=== PATIENT | male | born 1995 | race Caucasian/White ===

== ENCOUNTER 2019-04-04 09:42 | Emergency (ER) | payer SELFPAY ==
[2019-04-04] MEDS ORDERED: Ondansetron 4 MG Tab.DIS PO ONE (10:23)
--- NOTE | 2019-04-04 10:24 | EDM.PDOC ---
ED HPI GENERAL MEDICAL PROBLEM - General Chief Complaint: ENT Problem Stated Complaint: RASH ON MOUTH Time Seen by Provider: 04/04/19 10:04 Source of Information: Reports: Patient History Limitations: Reports: No Limitations - History of Present Illness INITIAL COMMENTS - FREE TEXT/NARRATIVE: HISTORY AND PHYSICAL: History of present illness: Patient is a 23-year-old male who presents to the emergency room with complaints of oral sores, fever blisters, nausea, vomiting and diarrhea. Patient reports that approximately 3 days ago he had noticed cold sores/fever blisters to the corners of bilateral mouth which moved into some anger sores in his gumline the following day. Over the past 24 hours he has had nausea and vomiting and a few episodes of diarrhea. He denies any recent travel, insect/ tick bites, antibiotic use or new exposures to foods. No one else in the home is ill. Patient denies any fever, chills, headache, change in vision, syncope or near syncope. Denies any chest pain, back pain, shortness of breath or cough. Has not noted any blood in urine or stool. Patient has been eating and drinking appropriately. Review of systems: As per history of present illness and below otherwise all systems reviewed and negative. Past medical history: As per history of present illness and as reviewed below otherwise noncontributory. Surgical history: As per history of present illness and as reviewed below otherwise noncontributory. Social history: See social history for further information Family history: As per history of present illness and as reviewed below otherwise noncontributory. Physical exam: General: Well-developed and well-nourished 23-year-old male. Alert and oriented. Nontoxic appearing and in no acute distress. HEENT: Atraumatic, normocephalic, pupils equal and reactive bilaterally, negative for conjunctival pallor or scleral icterus, mucous membranes moist, cold sore noted to bilateral lower lip in the corners. Canker sores noted to the lower gumline. TMs normal bilaterally, throat erythematous with exudate, no fullness or pillar shifting, neck supple, nontender, trachea midline. No drooling or trismus noted. No meningeal signs. No hot potato voice noted. Lungs: Clear to auscultation, breath sounds equal bilaterally, chest nontender. Heart: S1S2, regular rate and rhythm without overt murmur Abdomen: Soft, nondistended, nontender. Negative for masses or hepatosplenomegaly. Negative for costovertebral tenderness. Pelvis: Stable nontender. Skin: Intact, warm, dry. No lesions or rashes noted. Extremities: Atraumatic, moves all extremities per self without difficulty or deficits, negative for cords or calf pain. Neurovascular unremarkable. Neuro: Awake, alert, oriented. Cranial nerves II through XII unremarkable. Cerebellum unremarkable. Motor and sensory unremarkable throughout. Exam nonfocal. Notes: Lab work is unremarkable. Vital signs remain stable. Patient felt relief with the Zofran. Supportive care measures were reviewed and discussed. Voices understanding and is agreeable to plan of care. Denies any further questions or concerns at this time. Diagnostics: CBC, CMP, [place] Spot, Strep Screening Therapeutics: Zofran ODT Prescription: Miracle Mouth wash Phenergan with codeine Zofran Impression: Viral gastroenteritis Canker sores Plan: 1. Please use Tylenol and/or Ibuprofen as needed for pain and fever management. Use the miracle mouthwash to help with the oral sores, you may use 10 mL's every 4 hours gargle/swish and spit as needed. Phenergan With Codeine is a narcotic so do not take this while driving or needing to be functioning outside of the house. Zofran for nausea management as needed. 2. Get plenty of Rest. Encourage fluids to prevent dehydration. Avoid any foods that can irritate the mouth such as citrus or spicy foods. Advance her diet as tolerated. 3. Please follow up with your primary care provider. Return to the ED as needed as discussed. Definitive disposition and diagnosis as appropriate pending reevaluation and review of above. Generalized Pain Score (Numeric/FACES): 5 - Related Data Allergies Allergy/AdvReac Type Severity Reaction Status Date / Time sulfamethoxazole Allergy Hives Verified 04/04/19 10:09 [From Bactrim] trimethoprim [From Bactrim] Allergy Hives Verified 04/04/19 10:09 Home Meds: Home Meds . [No Known Home Meds] 04/04/19 [History] Past Medical History - Past Health History Medical/Surgical History: Denies Medical/Surgical History - Infectious Disease History Infectious Disease History: Reports: None Social & Family History - Family History Family Medical History: Noncontributory - Tobacco Use Smoking Status *Q: Never Smoker Second Hand Smoke Exposure: No - Caffeine Use Caffeine Use: Reports: Energy Drinks - Recreational Drug Use Recreational Drug Use: No ED ROS ENT - Review of Systems Review Of Systems: ROS reveals no pertinent complaints other than HPI. ED EXAM, ENT - Physical Exam Exam: See Below (See dictation) Course - Vital Signs Last Recorded V/S: Last Vital Signs Temp 97 F 04/04/19 10:09 Pulse 97 04/04/19 10:09 Resp 16 04/04/19 10:09 BP 127/74 04/04/19 10:09 Pulse Ox 100 04/04/19 10:09 - Orders/Labs/Meds Orders: Active Orders 24 hr Category Date Time Status CULTURE STREP A CONFIRMATION [RM] Stat Lab 04/04/19 10:36 Results STREP SCRN A RAPID W CULT CONF [RM] Stat Lab 04/04/19 10:36 Results Labs: Laboratory Tests 04/04/19 04/04/19 04/04/19 Range/Units 10:39 10:39 10:39 WBC 7.71 (4.0-11.0) K/uL RBC 5.31 (4.50-5.90) M/uL Hgb 15.4 (13.0-17.0) g/dL Hct 46.7 (38.0-50.0) % MCV 87.9 (80.0-98.0) fL MCH 29.0 (27.0-32.0) pg MCHC 33.0 (31.0-37.0) g/dL RDW Std Deviation 40.8 (28.0-62.0) fl RDW Coeff of Jordan 13 (11.0-15.0) % Plt Count 262 (150-400) K/uL MPV 10.20 (7.40-12.00) fL Neut % (Auto) 51.8 (48.0-80.0) % Lymph % (Auto) 32.4 (16.0-40.0) % [place] % (Auto) 10.0 (0.0-15.0) % Eos % (Auto) 4.8 (0.0-7.0) % Baso % (Auto) 1.0 (0.0-1.5) % Neut # (Auto) 4.0 (1.4-5.7) K/uL Lymph # (Auto) 2.5 H (0.6-2.4) K/uL [place] # (Auto) 0.8 (0.0-0.8) K/uL Eos # (Auto) 0.4 (0.0-0.7) K/uL Baso # (Auto) 0.1 (0.0-0.1) K/uL Nucleated RBC % 0.0 /100WBC Nucleated RBCs # 0 K/uL Sodium 137 (136-148) mmol/L Potassium 4.2 (3.5-5.1) mmol/L Chloride 99 (98-107) mmol/L Carbon Dioxide 28.8 (21.0-32.0) mmol/L BUN 15 (7.0-18.0) mg/dL Creatinine 1.1 (0.8-1.3) mg/dL Est Cr Clr Drug Dosing 91.63 mL/min Estimated GFR (MDRD) > 60.0 ml/min Glucose 95 (74-106) mg/dL Calcium 8.8 (8.5-10.1) mg/dL Total Bilirubin 0.4 (0.2-1.0) mg/dL AST 17 (15-37) IU/L ALT 30 (14-63) IU/L Alkaline Phosphatase 78 (46-116) U/L Total Protein 8.0 (6.4-8.2) g/dL Albumin 3.7 (3.4-5.0) g/dL Globulin 4.3 H (2.6-4.0) g/dL Albumin/Globulin Ratio 0.9 (0.9-1.6) Monoscreen NEGATIVE (NEG) Meds: Medications Discontinued Medications Generic Name Dose Route Start Last Admin Trade Name Freq PRN Reason Stop Dose Admin Ondansetron HCl 4 mg 04/04/19 10:23 04/04/19 10:36 Zofran Odt PO 04/04/19 10:24 4 mg ONETIME ONE Administration Departure - Departure Time of Disposition: 11:24 Disposition: Home, Self-Care 01 Clinical Impression: Canker sores oral, Viral gastroenteritis - Discharge Information Instructions: Viral Gastroenteritis, Adult, [id number], Canker Sores Referrals: PCP,None [Primary Care Provider] - Forms: ED Department Discharge Additional Instructions: The following information is given to patients seen in the emergency department who are being discharged to home. This information is to outline your options for follow-up care. We provide all patients seen in our emergency department with a follow-up referral. The need for follow-up, as well as the timing and circumstances, are variable depending upon the specifics of your emergency department visit. If you don't have a primary care physician on staff, we will provide you with a referral. We always advise you to contact your personal physician following an emergency department visit to inform them of the circumstance of the visit and for follow-up with them and/or the need for any referrals to a consulting specialist. The emergency department will also refer you to a specialist when appropriate. This referral assures that you have the opportunity for follow-up care with a specialist. All of these measure are taken in an effort to provide you with optimal care, which includes your follow-up. Under all circumstances we always encourage you to contact your private physician who remains a resource for coordinating your care. When calling for follow-up care, please make the office aware that this follow-up is from your recent emergency room visit. If for any reason you are refused follow-up, please contact the [facility] Emergency Department at and asked to speak to the emergency department charge nurse. [facility] [address] [place] [id number] [address] 1. Please use Tylenol and/or Ibuprofen as needed for pain and fever management. Use the miracle mouthwash to help with the oral sores, you may use 10 mL's every 4 hours gargle/swish and spit as needed. Phenergan With Codeine is a narcotic so do not take this while driving or needing to be functioning outside of the house. Zofran for nausea management as needed. 2. Get plenty of Rest. Encourage fluids to prevent dehydration. Avoid any foods that can irritate the mouth such as citrus or spicy foods. Advance her diet as tolerated. 3. Please follow up with your primary care provider. Return to the ED as needed as discussed. - My Orders Last 24 Hours: My Active Orders 04/04/19 10:36 CULTURE STREP A CONFIRMATION [RM] Stat STREP SCRN A RAPID W CULT CONF [RM] Stat - Assessment/Plan Last 24 Hours: My Active Orders 04/04/19 10:36 CULTURE STREP A CONFIRMATION [RM] Stat STREP SCRN A RAPID W CULT CONF [] Stat
[2019-04-04 11:21] LABS: CHLORIDE,CL 99 mmol/L (98-107); SODIUM,NA 137 mmol/L (136-148)
== END 2019-04-04 11:35 | disposition home or self-care (01) ==
LOC: MW.ED 09:42
DX: A08.4 Viral intestinal infection, unspecified (principal); K12.0 Recurrent oral aphthae; Z88.2 Allergy status to sulfonamides; Z88.8 Allergy status to other drugs, medicaments and biological substances; Z79.899 Other long term (current) drug therapy
CPT/HCPCS: 36415; 80053; 85025; 86308; 87081; 87880; 99284; A9270

== ENCOUNTER 2021-06-03 16:27 | Emergency (ER) | payer SELFPAY ==
[2021-06-03] MEDS ORDERED: Ibuprofen 600 MG Tab PO ONE (17:19)
[2021-06-03] MEDS ORDERED: Cephalexin 500 MG Cap PO ONE (17:20)
--- NOTE | 2021-06-03 17:41 | EDM.PDOC ---
ED HPI GENERAL MEDICAL PROBLEM - General Chief Complaint: Skin Complaint Stated Complaint: BOIL Time Seen by Provider: 06/03/21 16:36 - History of Present Illness INITIAL COMMENTS - FREE TEXT/NARRATIVE: HISTORY AND PHYSICAL: History of present illness: This is a 25-year-old gentleman who presents ER today secondary to an abscess to his perineal region. Patient has any history of hypertension, diabetes, liver, lung, kidney problems. Patient reports that he noticed pain and swelling in the area approximately 2 to 3 days ago and is been applying heat to the area. Review of systems: As per history of present illness and below otherwise all systems reviewed and negative. Past medical history: As per history of present illness and as reviewed below otherwise noncontributory. Surgical history: As per history of present illness and as reviewed below otherwise noncontributory. Social history: No reported history of drug abuse. Family history: As per history of present illness and as reviewed below otherwise nonc ontributory. Physical exam: HEENT: Atraumatic, normocephalic, pupils reactive, negative for conjunctival pallor or scleral icterus, mucous membranes moist, throat clear, neck supple, nontender, trachea midline. Lungs: Clear to auscultation, breath sounds equal bilaterally, chest nontender. Heart: S1S2, regular, negative for clicks, rubs, or JVD. Abdomen: Soft, nondistended, nontender. Negative for masses or hepatosplenomegaly. Negative for costovertebral tenderness. Pelvis: Stable nontender. Genitourinary: Deferred. Rectal: Deferred. Extremities: Atraumatic, negative for cords or calf pain. Neurovascular unremarkable. Neuro: Awake, alert, oriented. Cranial nerves II through XII unremarkable. Cerebellum unremarkable. Motor and sensory unremarkable throughout. Exam nonfocal. Patient's ER physical exam is significant for a 3 x 3 cm induration that is already draining purulent material from his right perineal area over his proximal buttock. Abscess not does not encroach into the perianal or rectal region. Patient as mentioned is already self draining with a moderate amount of purulent material identified on the sheets in the bed. Diagnostics: [] Therapeutics: I&D of abscess performed in ED Assessment and plan: 25-year-old gentleman who presents to the ER today secondary to an abscess to his right perineal region. There is no evidence of Srinath's gangrene. Patient has any history of diabetes. Incision and drainage was performed in ER with a moderate amount of purulent material expressed. Patient was started on Keflex and ibuprofen for pain. Patient will need a wound check by his primary care physician in 2 to 3 days. Patient may return to the ED if he is unable to see his physician in that time period. Reassessment at the time of disposition demonstrates that the patient is in no acute distress. The patient has remained stable throughout the entire ED visit and is without objective evidence for acute process requiring urgent intervention or hospitalization. The patient is stable for discharge, counseling is provided as documented above, discussed symptomatic treatment and specific conditions for return. I have spoken with the patient/caregiver and discussed todays findings, in addition to providing specific details for the plan of care. Questions are answered and there is agreement with the plan. Definitive disposition and diagnosis as appropriate pending reevaluation and review of above. Left Buttock Pain Score (Numeric/FACES): 4 - Related Data Allergies Allergy/AdvReac Type Severity Reaction Status Date / Time sulfamethoxazole Allergy Hives Verified 06/03/21 16:39 [From Bactrim] trimethoprim [From Bactrim] Allergy Hives Verified 06/03/21 16:39 Home Meds: Home Meds Ibuprofen 600 mg PO Q6HR PRN #30 tablet 06/03/21 [Rx] cephALEXin [Keflex] 500 mg PO Q8H #30 cap 06/03/21 [Rx] Past Medical History - Past Health History Medical/Surgical History: Denies Medical/Surgical History - Infectious Disease History Infectious Disease History: Reports: None Social & Family History - Family History Family Medical History: No Pertinent Family History - Tobacco Use Tobacco Use Status *Q: Never Tobacco User - Caffeine Use Caffeine Use: Reports: None - Recreational Drug Use Recreational Drug Use: No ED ROS GENERAL - Review of Systems Review Of Systems: See Below ED EXAM, SKIN/RASH Exam: See Below ED SKIN PROCEDURES - I&D Site: Right perineal region Skin Prep: Providone-Iodine (Betadine) Local Anesthesia: Lidocaine: 1% Plain Local Anesthetic Volume: 2cc Area Incised With: 11 Blade Drainage: Purulent, Moderate Amount Probed to Break Up Loculations: Yes Packed With: None Sterile Dressinx4(s) Complications: No Course - Vital Signs Last Recorded V/S: Last Vital Signs Temp 98 F 06/03/21 16:39 Pulse 100 06/03/21 16:39 Resp 16 06/03/21 16:39 BP 150/99 H 06/03/21 16:39 Pulse Ox 97 06/03/21 16:39 - Orders/Labs/Meds Meds: Medications Discontinued Medications Generic Name Dose Route Start Last Admin Trade Name Kayla PRN Reason Stop Dose Admin Cephalexin 500 mg 06/03/21 17:20 Cephalexin 500 Mg Cap PO 06/03/21 17:21 ONETIME ONE Ibuprofen 600 mg 06/03/21 17:19 Ibuprofen 600 Mg Tab PO 06/03/21 17:20 ONETIME ONE Lidocaine HCl 5 ml 06/03/21 16:57 06/03/21 17:01 Lidocaine 1% 5 Ml Sdv INJECT 06/03/21 16:58 5 ml ONETIME ONE Administration Departure - Departure Time of Disposition: 17:41 Disposition: Home, Self-Care 01 Condition: Good Clinical Impression: Abscess - Discharge Information Instructions: Skin Abscess Referrals: PCP,None [Primary Care Provider] - Additional Instructions: You were seen and evaluated in the ER today secondary to an abscess to your groin. You will be started on Keflex 500 mg 3 times a day x10 days. The abscess was incised and drained with a moderate amount of purulent material. Please make an appointment see your family doctor return to the ER in 2 to 3 days for any signs or concerns of infection. The following information is given to patients seen in the emergency department who are being discharged to home. This information is to outline your options for follow-up care. We provide all patients seen in our emergency department with a follow-up referral. The need for follow-up, as well as the timing and circumstances, are variable depending upon the specifics of your emergency department visit. If you don't have a primary care physician on staff, we will provide you with a referral. We always advise you to contact your personal physician following an emergency department visit to inform them of the circumstance of the visit and for follow-up with them and/or the need for any referrals to a consulting specialist. The emergency department will also refer you to a specialist when appropriate. T his referral assures that you have the opportunity for follow-up care with a specialist. All of these measure are taken in an effort to provide you with optimal care, which includes your follow-up. Under all circumstances we always encourage you to contact your private physician who remains a resource for coordinating your care. When calling for follow-up care, please make the office aware that this follow-up is from your recent emergency room visit. If for any reason you are refused follow-up, please contact the [facility] Emergency Department at and asked to speak to the emergency department charge nurse. [facility] - [facility] [address] [place] [id number] [address] Sepsis Event Note (ED) - Evaluation Sepsis Screening Result: No Definite Risk - Focused Exam Vital Signs: Vital Signs Temp Pulse Resp BP Pulse Ox 06/03/21 16:39 98 F 100 16 150/99 H 97
== END 2021-06-03 17:53 | disposition home or self-care (01) ==
LOC: MW.ED 16:27
DX: L02.215 Cutaneous abscess of perineum (principal); Z88.1 Allergy status to other antibiotic agents
CPT/HCPCS: 10060; 99282; A9270

== ENCOUNTER 2022-06-12 18:05 | Emergency (ER) | payer SELFPAY ==
[2022-06-12] MEDS ORDERED: Sodium Chloride 0.9% 1,000 ML IV ONE (19:35)
[2022-06-12] MEDS ORDERED: Ketorolac 30 MG/ML SDV IM ONE (19:35)
[2022-06-12] MEDS ORDERED: Ketorolac 30 MG/ML SDV IVPUSH ONE (19:55)
[2022-06-12 20:20] LABS: BLOOD UREA NITROGEN,BUN 12 mg/dL (7.0-18.0); CARBON DIOXIDE,CO2 28.9 mmol/L (21.0-32.0); CHLORIDE,CL 104 mmol/L (98-107); ESTIMATED GFR 78 mL/min (>60); GLUCOSE RANDOM 91 mg/dL (74-106); SODIUM,NA 141 mmol/L (136-148)
== END 2022-06-12 21:56 | disposition home or self-care (01) ==
LOC: MW.ED 18:05
DX: N13.2 Hydronephrosis with renal and ureteral calculous obstruction (principal); Z88.1 Allergy status to other antibiotic agents
CPT/HCPCS: 36415; 74176; 80053; 81001; 85025; 96361; 96374; 99284; J1885; J7030; 99283

== ENCOUNTER 2022-08-06 11:48 | Emergency (ER) | payer SELFPAY ==
[2022-08-06] MEDS ORDERED: Sodium Chloride 0.9% 1,000 ML IV ONE (12:08)
[2022-08-06] MEDS ORDERED: Morphine 4 MG/ML Syringe IVPUSH ONE (12:08)
[2022-08-06] MEDS ORDERED: Ondansetron 4 MG/2 ML SDV IVPUSH ONE (12:08)
[2022-08-06 13:04] LABS: CARBON DIOXIDE,CO2 26.1 mmol/L (21.0-32.0)
[2022-08-06] MEDS ORDERED: Tamsulosin 0.4 MG Cap.ER PO ONE (14:59)
[2022-08-06] MEDS ORDERED: Iopamidol 755 Mg/ML 100 ML Bottle IVPUSH ONE (17:55)
== END 2022-08-06 15:31 | disposition home or self-care (01) ==
LOC: MW.ED 11:48
DX: N13.2 Hydronephrosis with renal and ureteral calculous obstruction (principal); Z20.822 Contact with and (suspected) exposure to COVID-19; Z88.1 Allergy status to other antibiotic agents
CPT/HCPCS: 36415; 74177; 80053; 81001; 85025; 87086; 87635; 96361; 96374; 96375; 99284; J2270; J2405; J7030; Q9967; U0002

== ENCOUNTER 2024-06-16 11:03 | Emergency (ER) | payer SELFPAY ==
[2024-06-16] MEDS: Sodium Chloride 0.9% 1,000 ML IV ONE (11:47)
[2024-06-16] MEDS: Morphine 4 MG/ML Syringe IVPUSH ONE (11:47)
[2024-06-16] MEDS: Ondansetron 4 MG/2 ML SDV IVPUSH ONE (11:48)
[2024-06-16] MEDS: Lidocaine 1% PF 2 ML SDV INJECT ONE (11:48)
[2024-06-16] MEDS: Sodium Chloride 0.9% 2.5 ML Syringe FLUSH PRN (11:50)
[2024-06-16] MEDS: Sodium Chloride 0.9% 10 ML Syringe FLUSH PRN (11:50)
[2024-06-16 11:54] LABS: BASOPHILS ABSOLUTE AUTO 0.04 K/uL (0.00-0.20); BASOPHILS PERCENT AUTO 0.3 % (0.0-1.0); EOSINOPHILS PERCENT AUTO 1.6 % (0.0-6.0); HEMATOCRIT 46.3 % (42.0-52.0); HEMOGLOBIN 15.8 g/dL (14.0-18.0); IMMATURE GRAN ABSOLUTE AUTO 0.02 K/uL (0.00-0.05); IMMATURE GRAN PERCENT AUTO 0.2 % (0.0-0.4); LYMPHOCYTES ABSOLUTE AUTO 1.79 K/uL (1.00-4.80); LYMPHOCYTES PERCENT AUTO 14.4 % (24.0-44.0); MEAN CORPUSCULAR HEMOGLOBIN 29.4 pg (28.0-32.0); MEAN CORPUSCULAR HGB CONC 34.1 g/dL (32.0-36.0); MEAN CORPUSCULAR VOLUME 86.2 fL (83.0-99.0); MEAN PLATELET VOLUME 10.1 fL (9.4-12.4); MONOCYTES ABSOLUTE AUTO 0.96 K/uL (0.00-0.80); MONOCYTES PERCENT AUTO 7.7 % (0.0-8.0); NEUTROPHILS ABSOLUTE AUTO 9.43 K/uL (1.80-7.70); NEUTROPHILS PERCENT AUTO 75.8 % (41.0-71.0); PLATELET COUNT,PLT 254 K/uL (150-400); RED BLOOD CELL COUNT 5.37 M/uL (4.52-5.90); WHITE BLOOD CELL COUNT,WBC 12.44 K/uL (3.9-11.3)
[2024-06-16 12:17] LABS: ALBUMIN 3.9 g/dL (3.4-5.0); BILIRUBIN TOTAL 1.3 mg/dL (0.2-1.0); CALCIUM 9.2 mg/dL (8.5-10.1); CARBON DIOXIDE,CO2 30.8 mmol/L (21.0-32.0); CREATININE 1.4 mg/dL (0.8-1.3); EST CRCL DRUG DOSING (CG) 68.94 mL/min; POTASSIUM,K 3.7 mmol/L (3.5-5.1)
[2024-06-16 12:21] LABS: LACTIC ACID 0.9 mmol/L (0.4-2.0)
[2024-06-16] MEDS: Iopamidol 755 MG/ML 500 ML Multipack Bottle IVPUSH STA (12:37)
[2024-06-16] MEDS: Clindamycin HCl 150 MG Cap PO ONE (14:13)
== END 2024-06-16 14:19 | disposition home or self-care (01) ==
LOC: MW.ED 11:03
DX: L02.215 Cutaneous abscess of perineum (principal); Z75.8 Other problems related to medical facilities and other health care; Z88.2 Allergy status to sulfonamides; Z88.1 Allergy status to other antibiotic agents
CPT/HCPCS: 10060; 36415; 72193; 80053; 83605; 85025; 87040; 96361; 96374; 96375; 99284; A9270; J2270; J2405; J3490; J7030; Q9967